=== PATIENT | male | born 1950 | race Caucasian/White ===

== ENCOUNTER → 2018-08-07 07:51 | Outpatient (CLI) | payer MEDICARE, BC, SELFPAY ==
--- NOTE | 2018-08-07 10:47 | PFTCOMP ---
COMPLETE PULMONARY FUNCTION TEST INTERPRETATION Brief HPI: Patient is a 67 year old male, currently under the care of Dr. Frye, who presents to [facility] for complete pulmonary function tests secondary to diagnosis of COPD. Respiratory therapist reports good effort and reproducible results. Interpretation: Forced expiration spirometry shows a severe large airways obstructive ventilatory defect with an FEV1 of 49% predicted. There is a significant bronchodilator response in FEV1 by ATS criteria. Spirograms are of good quality and plateau slowly, indicating slowly emptying areas of the lungs. The respiratory flow volume loop shows decreased expiratory flow rates at all lung volumes consistent with airway obstruction. Lung volumes by body plethysmography show an elevated total lung capacity at 7.67 L, 143% predicted. FRC and RV are elevated out of proportion. Lung volume measurements are consistent with hyperinflation and air-trapping. Diffusion capacity by carbon monoxide is at the lower limit of normal at 59% predicted. The airway resistance is elevated. No previous pulmonary function tests were available for review. Impression: Partially reversible severe large airways obstructive ventilatory defect with a symmetric reduction diffusing capacity, resulting in air trapping with hyperinflation, and consistent with a diagnosis of COPD/asthma overlap syndrome.
== END ==
PROVIDERS: Family Provider Internal Medicine; PCP Internal Medicine; Visit Provider Internal Medicine Critical Care Medicine
DX: J44.9 Chronic obstructive pulmonary disease, unspecified (principal); F17.210 Nicotine dependence, cigarettes, uncomplicated
CPT/HCPCS: 94060; 94726; 94729

== ENCOUNTER → 2018-08-08 10:40 | Outpatient (CLI) | payer MEDICARE, BC, SELFPAY ==
[2018-08-08 11:00] VITALS: PULSE 82; PULSE 83; PULSE 86; PULSE 87; PULSE 89; PULSE 90; PULSE 91; O2SAT 91; O2SAT 92; O2SAT 93; O2SAT 94; O2SAT 95; O2SAT 96
--- NOTE | 2018-08-09 08:10 | WT_ITS ---
PSN 6 Minute Walk Test - 6 Minute Walk Test 6 Minute Walk Test: 6 Minute Walk Test PSN:6-Minute Walk Test Start: 08/08/18 11: 27 Freq: Status: Active Protocol: RESP.6MINW Document 08/08/18 11:00 HG (Rec: 08/08/18 11:30 HG [id number]) 6 Minute Walk Test Date Performed 08/08/18 Time Performed 11:00 Height 5 ft 5 in Weight: 52.617 kg Weight in Pounds 116.[address]: Jose Frye Assistive device used: None Pre-test Oxygen Delivery Method Room Air Pulse Ox (%) 94 Pulse Rate (60-100 beats/min) 82 Dyspnea Shanti Scale (0-10) 1 Exertion Shanti Scale (6-20) 8 1st minute Oxygen Delivery Method Room Air Pulse Ox (%) 96 Pulse Rate (60-100 beats/min) 86 2nd minute Oxygen Delivery Method Room Air Pulse Ox (%) 96 Pulse Rate (60-100 beats/min) 89 3rd minute Oxygen Delivery Method Room Air Pulse Ox (%) 94 Pulse Rate (60-100 beats/min) 87 4th minute Oxygen Delivery Method Room Air Pulse Ox (%) 95 Pulse Rate (60-100 beats/min) 89 5th minute Oxygen Delivery Method Room Air Pulse Ox (%) 93 Pulse Rate (60-100 beats/min) 91 6th minute Oxygen Delivery Method Room Air Pulse Ox (%) 91 Pulse Rate (60-100 beats/min) 90 Post-test Oxygen Delivery Method Room Air Pulse Ox (%) 92 Pulse Rate (60-100 beats/min) 83 Dyspnea Shanti Scale (0-10) 3 Exertion Shanti Scale (6-20) 11 Full Laps Walked 18 Partial Lap, Number of Tiles Walked 0 Total Distance Walked (ft) 1062 - Interpretation Interpretation: The patient was able to ambulate 1062 feet over the course of 6 minutes on room air with no assistive devices or breaks. The patient did experience significant desaturation from a baseline of 96%, to as low as 91%, but no tachycardia was noted. These findings are consistent with a respiratory limitation exercise tolerance. - Recommendations Recommendations: No supplemental oxygen is indicated at this time. However, patient will need to be followed closely given level of desaturation.
== END ==
PROVIDERS: Family Provider Internal Medicine; PCP Internal Medicine; Visit Provider Internal Medicine Critical Care Medicine
DX: J44.9 Chronic obstructive pulmonary disease, unspecified (principal); F17.210 Nicotine dependence, cigarettes, uncomplicated
CPT/HCPCS: 94618

== ENCOUNTER → 2018-09-06 09:50 | Outpatient (CLI) | payer MEDICARE, BC, SELFPAY ==
[2018-09-06 10:42] LABS: Absolute Neutrophil Count 5.3 X10^3/uL (2.0-7.7); Basophil# 0.05 X10^3/uL; Basophil% 0.6 % (0-1); Eosinophil# 0.59 X10^3/uL; Eosinophils% 7.1 % (0-5); Hematocrit 53.6 % (40-54); Lymphocyte % 20.6 % (19-41); Mean Corpuscular Volume 91.2 fL (80-94); Mean Platelet Vol. 9.4 fl (6.2-12.0); Monocyte# 0.58 X10^3/uL; Neutrophil # 5.34 X10^3/uL (2.7-7.7); Neutrophil % 64.6 % (47-70); Platelet Count 189 K/mm3 (150-450); Red Blood Count 5.88 M/mm3 (4.6-6.2); White Blood Count 8.3 K/mm3 (4.4-11.0)
[2018-09-06 10:44] LABS: Hemoglobin 18.2 g/dl (13.0-16.5); POSITIVE COUNT NO; POSITIVE DIFFERENTIAL NO; POSITIVE MORPHOLOGY NO
[2018-09-09 14:06] LABS: Alternaria alternata <0.10 kU/L (Class 0); Bermuda Grass <0.10 kU/L (Class 0); Bluegrass, Kentucky <0.10 kU/L (Class 0); Cat Hair/Dander, Standard <0.10 kU/L (Class 0); D farinae Mite <0.10 kU/L (Class 0); D pteronyssinus <0.10 kU/L (Class 0); Dog Epithelia <0.10 kU/L (Class 0); Elm, American White <0.10 kU/L (Class 0); Oak, White <0.10 kU/L (Class 0); Plantain, English <0.10 kU/L (Class 0); Ragweed, Short/Common <0.10 kU/L (Class 0)
[2018-09-09 20:06] LABS: Aspirgillus flavus Negative (Neg:<1:1); Aspirgillus fumigatus Negative (Neg:<1:1); Aspirgillus niger Negative (Neg:<1:1)
[2018-09-10 07:31] LABS: Mouse Urine <0.10 kU/L (Class 0)
[2018-09-10 07:33] LABS: Immunoglobulin E 102 IU/mL (0-100)
== END ==
PROVIDERS: Family Provider Internal Medicine; PCP Internal Medicine; Referring Provider Nurse Practitioner Acute Care; Visit Provider Nurse Practitioner Acute Care
DX: J44.9 Chronic obstructive pulmonary disease, unspecified (principal); J45.909 Unspecified asthma, uncomplicated
CPT/HCPCS: 36415; 82785; 85025; 86003; 86606

== ENCOUNTER → 2019-03-02 13:03 | Outpatient (CLI) | payer MEDICARE, BC, SELFPAY ==
[2019-02-21 09:24] VITALS: BMI 21.1
--- NOTE | 2019-03-02 13:06 | CT_ITS ---
STUDY: LOW DOSE CT LUNG CANCER SCREENING REASON FOR EXAM: Male, 68 years old. Smoking history, one half pack per day for 30 years RADIATION DOSAGE (If Supplied By Facility): CTDIvol = ( 2.01 ) mGy, DLP = ( 72.23 ) mGycm TECHNIQUE: No contrast was administered. Low dose technique was utilized (average mAS-38 and kVp 120). 1.25 mm axial source images with a slice interval of 1.25-mm were reconstructed in lung windows. 2.5 mm axial source images with a slice interval of 2.5-mm were reconstructed in lung windows. 5.0 mm axial source images with a slice interval of 5.0-mm were reconstructed in soft tissue windows. Nodule measured using lung windows on PACS and/or independent workstation with automated measurement of minimum and maximum diameter. Nodule measurement reported as average diameter rounded to the nearest whole number. Growth is defined as an increase ins size of greater than 1.5 mm. COMPARISON: None. NODULES: No noncalcified pulmonary nodules are localized groundglass opacities. There is a granuloma in the left upper lobe. Emphysema: Moderate centrilobular emphysema throughout the lungs but particularly in the upper lung zones. Endobronchial lesion: No endobronchial lesions. Mild fibrotic bands identified in the bilateral lung bases with mild degree of traction bronchiectasis involving the lung bases more than the upper lung zones. Aorta: There is atherosclerosis of the thoracic aorta. Coronary arteries: Sternal wires and mediastinal surgical clips compatible with prior CABG. Heart: Heart size is normal. Pulmonary artery: Unremarkable for unopacified appearance. Mediastinal nodes: No mediastinal or hilar adenopathy. There are calcified left hilar lymph nodes. Other chest and abdominal findings: The adrenal glands are not focally enlarged. Bladder surgically absent. CT/Low Dose CT Lung Screening IMPRESSION: 1. Lung-RADS category 1 - Continue annual screening with LDCT in 12 months. 2. Moderate centrilobular emphysema with scattered fibrotic changes and mild bronchiectasis. 3. CABG. IMPORTANT NOTES FOR USE: ACR Lung-RADS Version 1.0 Assessment Categories Release Date: March 18, 2014 Category: Coded 0-4 bases on nodule(s) with highest degree of suspicion. Negative screen is defined as categories 1 and 2; a positive screen is defined as categories 3 and 4. Category 3 and 4A nodules that are unchanged on interval CT should be coded as category 2, and individuals returned to screening in 12 months. Category 4X: Category 3 or 4 nodules with additional imaging findings that increase the suspicion of lung cancer, such as spiculation, GGN that doubles in size in 1 year, enlarged lymph notes, etc. Category Modifiers: S (significant finding unrelated to lung cancer) and C (prior history of treated lung cancer) may be added to the 0-4 Lung-RADS Electronically Signed: Azeem Diaz MD at 10:47 EDT , Service support ,
== END ==
PROVIDERS: Family Provider Internal Medicine; PCP Internal Medicine; Referring Provider Internal Medicine Critical Care Medicine; Visit Provider Internal Medicine Critical Care Medicine
DX: Z12.2 Encounter for screening for malignant neoplasm of respiratory organs (principal); F17.210 Nicotine dependence, cigarettes, uncomplicated
CPT/HCPCS: G0297

== ENCOUNTER → 2019-03-05 07:45 | Outpatient (CLI) | payer MEDICARE, BC, SELFPAY ==
[2019-02-21 09:24] VITALS: BMI 21.1
--- NOTE | 2019-03-05 15:41 | PFTCOMP_ITS ---
COMPLETE PULMONARY FUNCTION TEST INTERPRETATION Brief HPI: Patient is a 68 year old male, currently under the care of Dr. Frye, who presents to [facility] for complete pulmonary function tests secondary to diagnosis of COPD. Respiratory therapist reports good effort and reproducible results. Interpretation: Forced expiration spirometry shows a severe large airways obstructive ventilatory defect with an FEV1 of 47% predicted. There is a significant bronchodilator response in FEV1 by strict ATS criteria. Spirograms are of good quality and plateau slowly, indicating slowly emptying areas of the lungs. The respiratory flow volume loop shows decreased expiratory flow rates at all lung volumes consistent with airway obstruction. Lung volumes by body plethysmography show an elevated total lung capacity at 7.15 L, 134% predicted. FRC and RV are elevated out of proportion. Lung volume measurements are consistent with hyperinflation and air-trapping. Diffusion capacity by carbon monoxide is at the lower limit of normal at 61% predicted. The airway resistance is elevated. Compared to previous pulmonary function tests from 08/07/18, there has been no significant change. Impression: Partially reversible severe large airways obstructive ventilatory defect resulting in air trapping with hyperinflation and consistent with COPD/asthma overlap syndrome.
== END ==
PROVIDERS: Family Provider Internal Medicine; PCP Internal Medicine; Referring Provider Internal Medicine Critical Care Medicine; Visit Provider Internal Medicine Critical Care Medicine
DX: F17.210 Nicotine dependence, cigarettes, uncomplicated (principal)
CPT/HCPCS: 94060; 94726; 94729

== ENCOUNTER → 2019-03-08 08:11 | Outpatient (CLI) | payer MEDICARE, BC, SELFPAY ==
[2019-02-21 09:24] VITALS: BMI 21.1
[2019-03-08 09:54] VITALS: PULSE 82; PULSE 83; PULSE 86; PULSE 89; PULSE 90; PULSE 91; PULSE 92; O2SAT 92; O2SAT 93; O2SAT 94; O2SAT 97; O2SAT 98
--- NOTE | 2019-03-08 14:56 | PCM.PSN.6M ---
PSN 6 Minute Walk Test - 6 Minute Walk Test 6 Minute Walk Test: 6 Minute Walk Test PSN:6-Minute Walk Test Start: 03/08/19 09:54 Freq: Status: Active Protocol: RESP.6MINW Document 03/08/19 09:54 [facility] (Rec: 03/08/19 09:59 [facility] [id number]) 6 Minute Walk Test Date Performed 03/08/19 Time Performed 08:30 Height 5 ft 5 in Weight: 57.606 kg Weight in Pounds 127.[address]: Jose Frye Assistive device used: None Pre-test Oxygen Delivery Method Room Air Pulse Ox (%) 97 Pulse Rate (60-100 beats/min) 82 Dyspnea Shanti Scale (0-10) 4 Reported Symptoms Increased Work of Breathing 1st minute Oxygen Delivery Method Room Air Pulse Ox (%) 98 Pulse Rate (60-100 beats/min) 83 Dyspnea Shanti Scale (0-10) 4 Reported Symptoms Increased Work of Breathing 2nd minute Oxygen Delivery Method Room Air Pulse Ox (%) 94 Pulse Rate (60-100 beats/min) 90 Dyspnea Shanti Scale (0-10) 5 Reported Symptoms Increased Work of Breathing 3rd minute Oxygen Delivery Method Room Air Pulse Ox (%) 92 Pulse Rate (60-100 beats/min) 91 Dyspnea Shanti Scale (0-10) 5 Reported Symptoms Increased Work of Breathing 4th minute Oxygen Delivery Method Room Air Pulse Ox (%) 93 Pulse Rate (60-100 beats/min) 89 Dyspnea Shanti Scale (0-10) 5 Reported Symptoms Increased Work of Breathing 5th minute Oxygen Delivery Method Room Air Pulse Ox (%) 94 Pulse Rate (60-100 beats/min) 91 Dyspnea Shanti Scale (0-10) 5 Reported Symptoms Increased Work of Breathing 6th minute Oxygen Delivery Method Room Air Pulse Ox (%) 94 Pulse Rate (60-100 beats/min) 92 Dyspnea Shanti Scale (0-10) 5 Reported Symptoms Increased Work of Breathing Post-test Oxygen Delivery Method Room Air Pulse Ox (%) 98 Pulse Rate (60-100 beats/min) 86 Dyspnea Shanti Scale (0-10) 4 Reported Symptoms Increased Work of Breathing Full Laps Walked 18 Partial Lap, Number of Tiles Walked 41 Total Distance Walked (ft) 1103 - Interpretation Interpretation: The patient was able to ambulate 1103 feet over the course of 6 minutes on room air with no assistive devices or breaks. The patient did experience significant desaturation from a baseline of 97% to as low as 92%, but no significant tachycardia was noted. These findings are consistent with a respiratory limitation exercise tolerance. - Recommendations Recommendations: No supplemental oxygen is indicated at this time. However, patient will need to be followed closely given level of desaturation.
== END ==
PROVIDERS: Family Provider Internal Medicine; PCP Internal Medicine; Referring Provider Internal Medicine Critical Care Medicine; Visit Provider Internal Medicine Critical Care Medicine
DX: J44.9 Chronic obstructive pulmonary disease, unspecified (principal)
CPT/HCPCS: 94618

== ENCOUNTER → 2020-02-21 | Outpatient (CLI) | payer MEDICARE, BC, SELFPAY ==
[2020-01-07 09:47] VITALS: BMI 20.5
--- NOTE | 2020-02-21 15:30 | CT_ITS ---
STUDY: LOW DOSE CT LUNG CANCER SCREENING REASON FOR EXAM: Male, 69 years old. TOBACCO DEPENDENCY/1/2PPD X 30YR. Hx of CABG and heart stent x 6. COPD x 2yr RADIATION DOSAGE (If Supplied By Facility): CTDIvol = ( 1.70 ) mGy, DLP = ( 60.61 ) mGycm TECHNIQUE: No contrast was administered. Low dose technique was utilized (average mAS-38 and kVp 120). 1.25 mm axial source images with a slice interval of 1.25-mm were reconstructed in lung windows. 2.5 mm axial source images with a slice interval of 2.5-mm were reconstructed in lung windows. 5.0 mm axial source images with a slice interval of 5.0-mm were reconstructed in soft tissue windows. Nodule measured using lung windows on PACS and/or independent workstation with automated measurement of minimum and maximum diameter. Nodule measurement reported as average diameter rounded to the nearest whole number. Growth is defined as an increase ins size of greater than 1.5 mm. COMPARISON: Comparison is made with prior study dated March 02, 2019. NODULES: Granuloma in the left upper lobe. Emphysema: Hyperinflation. Stable emphysematous changes throughout both lungs worse in the upper lobes. Increased markings in the lingular segment of the left upper lobe abutting the left major fissure suggestive of a scarring. Mild degree of perihilar bronchiectasis. Endobronchial lesion: No endobronchial lesion is seen. Aorta: Atherosclerotic calcification. Coronary arteries: Coronary artery calcification. Heart: Prior CABG. Pulmonary artery: Mediastinal nodes: Calcified left hilar nodes. Other chest and abdominal findings: Degenerative changes of the thoracic spine. CT/Low Dose CT Lung Screening IMPRESSION: Lung-RADS category 2 - Continue annual screening with LDCT in 12 months. IMPORTANT NOTES FOR USE: ACR Lung-RADS Version 1.0 Assessment Categories Release Date: March 18, 2014 Category: Coded 0-4 bases on nodule(s) with highest degree of suspicion. Negative screen is defined as categories 1 and 2; a positive screen is defined as categories 3 and 4. Category 3 and 4A nodules that are unchanged on interval CT should be coded as category 2, and individuals returned to screening in 12 months. Category 4X: Category 3 or 4 nodules with additional imaging findings that increase the suspicion of lung cancer, such as spiculation, GGN that doubles in size in 1 year, enlarged lymph notes, etc. Category Modifiers: S (significant finding unrelated to lung cancer) and C (prior history of treated lung cancer) may be added to the 0-4 Lung-RADS Electronically Signed: Gerard Corona, at 15:52 EDT , Service support ,
== END | disposition home or self-care (01) ==
LOC: CT 15:25
PROVIDERS: PCP Internal Medicine; Referring Provider Internal Medicine Critical Care Medicine; Visit Provider Internal Medicine Critical Care Medicine
DX: F17.210 Nicotine dependence, cigarettes, uncomplicated (principal)
CPT/HCPCS: G0297

== ENCOUNTER → 2021-03-04 13:41 | Outpatient (CLI) | payer MEDICARE, BC, SELFPAY ==
[2020-06-25 12:38] VITALS: BMI 19.4
--- NOTE | 2021-03-04 13:44 | CT_ITS ---
STUDY: LOW DOSE CT LUNG CANCER SCREENING REASON FOR EXAM: Male, 70 years old. Long history of smoking. Screening for lung cancer. RADIATION DOSAGE (If Supplied By Facility): CTDIvol = ( 1.50 ) mGy, DLP = ( 53.94 ) mGycm TECHNIQUE: No contrast was administered. Low dose technique was utilized (average mAS-38 and kVp 120). 1.25 mm axial source images with a slice interval of 1.25-mm were reconstructed in lung windows. 2.5 mm axial source images with a slice interval of 2.5-mm were reconstructed in lung windows. 5.0 mm axial source images with a slice interval of 5.0-mm were reconstructed in soft tissue windows. Nodule measured using lung windows on PACS and/or independent workstation with automated measurement of minimum and maximum diameter. Nodule measurement reported as average diameter rounded to the nearest whole number. Growth is defined as an increase ins size of greater than 1.5 mm. COMPARISON: None. NODULES: There is hyperinflation of the lungs consistent with chronic obstructive lung disease (COPD). There is a nodule in the anterior segment of the right lung upper lobe measures 5 mm is stable since 03/02/2019 most likely represent a granuloma, axial images #84. Calcified granuloma is also noted in the left lung upper lobe. There are no suspicious lung nodules There are no endobronchial lesions. There is no demonstrated pleural abnormality. Normal heart and pericardium. Normal mediastinum. Normal hilar regions. Normal unenhanced pulmonary arteries. Normal aorta arch and descending thoracic aorta. Normal osseous structures. There is no demonstrated abnormality of the visualized upper abdomen. CT/Low Dose CT Lung Screening IMPRESSION: Lung-RADS category 2. Benign findings. COPD. Stable right lung upper lobe nodule. Recommendation: Routine screening CT scan in one year. IMPORTANT NOTES FOR USE: ACR Lung-RADS Version 1.0 Assessment Categories Release Date: March 18, 2014 Category: Coded 0-4 bases on nodule(s) with highest degree of suspicion. Negative screen is defined as categories 1 and 2; a positive screen is defined as categories 3 and 4. Category 3 and 4A nodules that are unchanged on interval CT should be coded as category 2, and individuals returned to screening in 12 months. Category 4X: Category 3 or 4 nodules with additional imaging findings that increase the suspicion of lung cancer, such as spiculation, GGN that doubles in size in 1 year, enlarged lymph notes, etc. Category Modifiers: S (significant finding unrelated to lung cancer) and C (prior history of treated lung cancer) may be added to the 0-4 Lung-RADS Electronically Signed: Lisa Harrison MD at 23:52 EDT Tel , Service support ,
== END ==
PROVIDERS: PCP Internal Medicine; Referring Provider Internal Medicine Critical Care Medicine; Visit Provider Internal Medicine Critical Care Medicine
DX: F17.210 Nicotine dependence, cigarettes, uncomplicated (principal); Z12.2 Encounter for screening for malignant neoplasm of respiratory organs
CPT/HCPCS: 71271

== ENCOUNTER 2022-03-05 13:12 | Outpatient (CLI) | payer MEDICARE, BC, SELFPAY ==
--- NOTE | 2022-03-05 13:14 | CT_ITS ---
STUDY: LOW DOSE CT LUNG CANCER SCREENING REASON FOR EXAM: Male, 71 years old. Tobacco Dependency. Patient smoked half a pack per day for 30 years. RADIATION DOSAGE (If Supplied By Facility): CTDIvol = ( 2.01 ) mGy, DLP = ( 74.49 ) mGycm TECHNIQUE: No contrast was administered. Low dose technique was utilized (average mAS-38 and kVp 120). 1.25 mm axial source images with a slice interval of 1.25-mm were reconstructed in lung windows. 2.5 mm axial source images with a slice interval of 2.5-mm were reconstructed in lung windows. 5.0 mm axial source images with a slice interval of 5.0-mm were reconstructed in soft tissue windows. COMPARISON: Comparison is made with prior study dated 03/04/2021. NODULES: There is a new 2.5 mm tiny spiculated nodule in the posterior medial aspect of the right upper lobe as seen on axial image #74. Stable 4 mm calcified granuloma in the lateral aspect of the right upper lobe as seen on axial image #91. Emphysema: Hyperinflation. Emphysematous changes worse in the upper lobes. Mild linear scarring in the anterior medial aspect of the right middle lobe and lingular segment of the left upper lobe. This is unchanged. Endobronchial lesion: None Aorta: Atherosclerotic plaque formation of the aortic arch. CORONARY ARTERIES: Coronary artery calcification Heart: Unremarkable Pulmonary artery: Unremarkable Mediastinal nodes: Remarkable Other chest and abdominal findings: CT/Low Dose CT Lung Screening IMPRESSION: Lung-RADS category 3 - Continue screening with LDCT in 6 months. IMPORTANT NOTES FOR USE: ACR Lung-RADS Version 1.1 Assessment Categories Release Date: 2018 Category: Coded 0-4 bases on nodule(s) with highest degree of suspicion. Negative screen is defined as categories 1 and 2; a positive screen is defined as categories 3 and 4. Category 3 and 4A nodules that are unchanged on interval CT should be coded as category 2, and individuals returned to screening in 12 months. Category 4X: Category 3 or 4 nodules with additional imaging findings that increase the suspicion of lung cancer, such as spiculation, GGN that doubles in size in 1 year, enlarged lymph notes, etc. Category Modifiers: S (significant finding unrelated to lung cancer) Electronically Signed: Gerard Corona MD at 13:41 EDT ,
== END 2022-03-05 23:59 | disposition home or self-care (01) ==
LOC: CT 13:13
PROVIDERS: PCP Internal Medicine; Referring Provider Internal Medicine Critical Care Medicine; Visit Provider Internal Medicine Critical Care Medicine
DX: Z87.891 Personal history of nicotine dependence (principal)
CPT/HCPCS: 71271

== ENCOUNTER → 2023-03-07 | Outpatient (CLI) | payer MEDICARE, BC, SELFPAY ==
--- NOTE | 2023-03-07 13:50 | CT_ITS ---
STUDY: LOW DOSE CT LUNG CANCER SCREENING REASON FOR EXAM: Male, 72 years old. Tobacco Dependency RADIATION DOSAGE (If Supplied By Facility): CTDIvol = ( 2.01 ) mGy, DLP = ( 71.73 ) mGycm TECHNIQUE: No contrast was administered. Low dose technique was utilized (average mAS-38 and kVp 120). 1.25 mm axial source images with a slice interval of 1.25-mm were reconstructed in lung windows. 1.25 mm coronal sagittal reformats were reconstructed in lung windows. COMPARISON: March 05, 2022, March 04, 2021, February 21, 2020 NODULES: Nodule #: 1 Density: Solid Lung location: Posterior right upper lobe lobe: 1.8 cm cm from pleura Location in series: Series Number: 2 Image: 64 Size - D1 x D2 mm: 4 x 3 mm: 3.5 average diameter Margin: Spiculated Shape: Round Calcification: None Fat: None Temporal comparison: Unchanged from March 05, 2022 when measures similarly Nodule #: 2 Density: Solid Lung location: Lateral right upper lobe lobe: 1.1 cm cm from pleura Location in series: Series Number: 2 Image: 88 Size - D1 x D2 mm: 3 x 3 mm: 3 average diameter Margin: Circumscribed Shape: Available Calcification: None Fat: None Temporal comparison: Unchanged from February 21, 2020 when measures similarly Chronic anterior left lower lobe 2 mm calcified granuloma, unchanged from February 21, 2020. Additional larger densely calcified left upper lobe stable calcified granuloma. Total lung nodules (excluding granulomas): 2 Parenchyma: Lungs hyperexpanded with diffuse centrilobular emphysematous change. No airspace consolidation, effusion, or pneumothorax. Mild linear subsegmental atelectasis or scarring in the lung bases and posterior left upper lobe. Endobronchial lesion: Mild bilateral peribronchial thickening with endobronchial mucus or debris in the subsegmental posterior right lower lobe Aorta: Aortic atherosclerosis without ectasia. CORONARY ARTERIES: Coronary artery bypass changes with severe multi-[place] vessel coronary atherosclerosis. Heart: No cardiomegaly. Pulmonary artery: No main pulmonary arterial enlargement. Mediastinal nodes: Pretracheal mediastinal lymph nodes up to 1.6 x 1.0 cm without significant change from February 21, 2020. Other scattered subcentimeter mediastinal lymph nodes are present. No bulky hilar adenopathy. Calcified small left hilar lymph node noted. Other chest and abdominal findings: Calcified sequela of prior granulomatous disease. Renal vascular calcifications with possible nonobstructive 4 mm right renal stone unchanged from March 04, 2021. Sternotomy wires. Mild chronic anterior vertebral height loss at T4. CT/Low Dose CT Lung Screening IMPRESSION: One-year stability of right upper lobe spiculated 3.5 mm nodule with additional nodules and calcified granulomas unchanged from June 22, 2020. No new or enlarging nodules. Mild peribronchial thickening with endobronchial mucus or debris in the posterior right lower lobe. No evidence of consolidative pneumonia. Diffuse emphysematous change. Coronary bypass changes. Lung-RADS category 2 - Continue annual screening with LDCT in 12 months. IMPORTANT NOTES FOR USE: ACR Lung-RADS Version 1.1 Assessment Categories Release Date: 2018 Category: Coded 0-4 bases on nodule(s) with highest degree of suspicion. Negative screen is defined as categories 1 and 2; a positive screen is defined as categories 3 and 4. Category 3 and 4A nodules that are unchanged on interval CT should be coded as category 2, and individuals returned to screening in 12 months. Category 4X: Category 3 or 4 nodules with additional imaging findings that increase the suspicion of lung cancer, such as spiculation, GGN that doubles in size in 1 year, enlarged lymph notes, etc. Category Modifiers: S (significant finding unrelated to lung cancer) Electronically Signed: Pepito Wade MD at 5:46 EDT ,
== END | disposition home or self-care (01) ==
LOC: CT 13:42
PROVIDERS: PCP Internal Medicine; Referring Provider Internal Medicine Critical Care Medicine; Visit Provider Internal Medicine Critical Care Medicine
DX: F17.210 Nicotine dependence, cigarettes, uncomplicated (principal)
CPT/HCPCS: 71271

== ENCOUNTER → 2024-05-18 | Outpatient (CLI) | payer MEDICARE, BC, SELFPAY ==
--- NOTE | 2024-05-18 15:47 | CT_ITS ---
STUDY: LOW DOSE CT LUNG CANCER SCREENING REASON FOR EXAM: Male, 73 years old. Current smoker, long-term smoking history RADIATION DOSAGE (If Supplied By Facility): CTDIvol = ( 2.01 ) mGy, DLP = ( 75.25 ) mGycm TECHNIQUE: No contrast was administered. Low dose technique was utilized (average mAS-38 and kVp 120). 1.25 mm axial source images with a slice interval of 1.25-mm were reconstructed in lung windows. 2.5 mm axial source images with a slice interval of 2.5-mm were reconstructed in lung windows. 5.0 mm axial source images with a slice interval of 5.0-mm were reconstructed in soft tissue windows. COMPARISON: 03/07/2023 FINDINGS: Lung windows show underlying emphysema with chronic interstitial changes. A previously noted 4 x 3 mm noncalcified nodule in the posterior right lower lobe has decreased in size since the previous study now measuring 3 x 2 mm. There is a stable 3 x 3 mm noncalcified nodular density in the right lower lobe on axial image 97. No new suspicious noncalcified mass or nodule. Chronic interstitial changes noted in both lung gama with nonspecific pleural thickening. However, there are now air space opacifications in both lower lung gama right greater than left suggestive of an inflammatory process, bronchiectatic changes are also now noted in the right lung base. Follow-up is recommended to ensure resolution. Limited soft tissues show normal-appearing thyroid gland. There has been a remote CABG. There are stable mediastinal lymph nodes, largest is in the AP window measuring 9 mm in short axis dimension. No pleural or pericardial effusions. Limited cuts through the upper abdomen do not show a suspicious abnormality. Bony structures show degenerative change. Again there are no new suspicious noncalcified nodules identified. There is new airspace opacification of both lower lung gama compared to the previous study. However, neoplasm cannot be excluded and short-term follow-up is recommended or a PET/CT study could be performed to determine if suspicious metabolic activity is present. CT/Low Dose CT Lung Screening IMPRESSION: Lung-RADS category 4A - Screening at 3 months with LDCT or evaluation with PET/CT may be used. IMPORTANT NOTES FOR USE: ACR Lung-RADS Version 1.1 Assessment Categories Release Date: 2018 Category: Coded 0-4 bases on nodule(s) with highest degree of suspicion. Negative screen is defined as categories 1 and 2; a positive screen is defined as categories 3 and 4. Category 3 and 4A nodules that are unchanged on interval CT should be coded as category 2, and individuals returned to screening in 12 months. Category 4X: Category 3 or 4 nodules with additional imaging findings that increase the suspicion of lung cancer, such as spiculation, GGN that doubles in size in 1 year, enlarged lymph notes, etc. Category Modifiers: S (significant finding unrelated to lung cancer) Electronically Signed: Reinaldo Franks MD at 18:44 EDT ,
== END | disposition home or self-care (01) ==
LOC: CT 15:44
PROVIDERS: PCP Internal Medicine; Referring Provider Nurse Practitioner Acute Care; Visit Provider Nurse Practitioner Acute Care
DX: F17.210 Nicotine dependence, cigarettes, uncomplicated (principal)
CPT/HCPCS: 71271

== ENCOUNTER → 2024-07-30 | Outpatient (CLI) | payer MEDICARE, BC, SELFPAY ==
--- NOTE | 2024-07-30 14:08 | CT_ITS ---
STUDY: CT CHEST WITHOUT CONTRAST REASON FOR EXAM: Male, 73 years old. lung nodules in high risk patient RADIATION DOSAGE (If Supplied By Facility): CTDIvol = ( 6.12 ) mGy, DLP = ( 233.88 ) mGycm TECHNIQUE: Transaxial imaging was performed without the administration of intravenous contrast material. Multiplanar coronal and sagittal images were reformatted. Individualized dose optimization techniques were used for this CT. COMPARISON: Comparison is made with prior study dated May 18, 2024. FINDINGS: CHEST Hyperinflation. Emphysematous changes more pronounced in the upper lobes. Stable volume loss and consolidation in the right lower lobe. Focal infiltrate in the posterior aspect of the lingular segment of the left upper lobe abutting the left major fissure. Stable mild airspace disease in the left lower lobe. There is no demonstrated pleural abnormality. Sternal cerclage wires and vascular clips are present from a prior sternotomy and coronary artery bypass graft procedure (CABG). There are calcifications of the coronary arteries. There are small lymph nodes within the mediastinum, which are normal in size and morphology most compatible with reactive lymph hyperplasia. Normal hilar regions. Normal unenhanced pulmonary arteries. There is atherosclerotic calcification of the aortic arch with tortuosity and elongation of the aortic arch and descending thoracic aorta. There are degenerative changes of the thoracic spine. There is no demonstrated abnormality of the visualized upper abdomen. CT/Chest without Contrast IMPRESSION: Essentially stable examination. Correlation with a PET scan recommended. Electronically Signed: Gerard Corona MD at 8:49 EDT ,
== END | disposition home or self-care (01) ==
LOC: CT 14:06
PROVIDERS: PCP Internal Medicine; Referring Provider Nurse Practitioner Acute Care; Visit Provider Nurse Practitioner Acute Care
DX: R91.8 Other nonspecific abnormal finding of lung field (principal)
CPT/HCPCS: 71250

== ENCOUNTER → 2024-08-21 | Outpatient (CLI) | payer MEDICARE, BC, SELFPAY ==
--- NOTE | 2024-08-21 12:15 | PET_ITS ---
EXAMINATION: FDG PET-CT INDICATIONS: A 73-year-old male with a history of abnormal findings in the lung field-pulmonary nodularity. COMPARISON EXAMINATION: None available. INDEX LESION SIZE SUV INTERPRETATION Proximal esophagus nodular 11.3 mm 3.7 Most consistent with physiologic tracer uptake, may necessitate direct visualization. Left mid anterior lung field, nodular 1.6 max Quantitative criteria for viable neoplasm are not fulfilled, sequential radiologic investigation recommended. Right lower lung field, diffuse non-nodular 2.0 max Quantitative criteria for viable neoplasm are not fulfilled. TECHNIQUE: Following the intravenous administration of 15.67 mCi of F-18 deoxyglucose via the right antecubital fossa, multiplanar image acquisitions of the head, neck, chest, abdomen and pelvis to level of mid-thigh, lower extremities obtained at one hour post radiopharmaceutical administration contemporaneously interpreted with the current CT of the head, neck, chest, abdomen and pelvis to level of mid-thigh, lower extremities dated 08/21/24 via coregistration reveal: SERUM GLUCOSE LEVEL: 123 mg/dl. HEIGHT: 65 inches. WEIGHT: 103 lbs. FINDINGS: Head/Neck: There is no evidence of abnormal increased glucose metabolism in the pharyngeal mucosal space, parapharyngeal space, bilateral-lateral and anterior neck, hypopharynx and distribution of the laryngeal structures. The visualized portion of the cerebral cortical-subcortical structures demonstrate symmetric and preserved glucose metabolism. CHEST: Facilitated uptake is noted in the right lower posterior lung zone, right lower diffuse non-nodular in presentation. The calculated maximum standard uptake value is 2.0. Facilitated FDG concentration is noted in the proximal esophagus with a calculated maximum standard uptake value of 3.7. The maximum axial diameter of the metabolic abnormality is 11.3 mm. Facilitated uptake is noted in the left mid anterior lung field generating a calculated maximum standard uptake value of 1.6. Prominent radiopharmaceutical concentration is identified in the left ventricular myocardium commensurate with the [place]. Pertinent chest CT findings are as follows. There is atherosclerotic calcification defined in the thoracic aorta without evidence of dilatation-aneurysm formation. Coronary arterial calcification is observed. There is evidence of prior median sternotomy. Additional parenchymal changes noted in the bilateral hemithorax demonstrates no evidence of increased FDG uptake. Emphysematous changes appear evident in the bilateral upper lung zones. There are no additional parenchymal densities-nodules defined in the right and left hemithorax with quantitatively significant increased FDG uptake. Abdomen/Pelvis: Normal physiologic distribution of the radiopharmaceutical is apparent in the hepatic (2.0) and splenic parenchyma, both renal units, bladder and visualized intestinal tract. Diffuse radiopharmaceutical concentration is noted in all four quadrants of the abdomen and pelvis. The abdomen and pelvis CT findings are as follows. There is atherosclerotic calcification defined in the abdominal aorta without evidence of dilatation-aneurysm formation. Abdominal and pelvic arterial calcification is observed. The gallbladder is surgically absent. Surgical clip placement is noted in the right lower abdominal retroperitoneum and mesentery, upper pelvis. Calcification is defined within the prostate gland. Skeletal: Degenerative changes are noted in the cervical, thoracic and lumbar spine. PET/PET/CT Tumor Base -Thigh Init IMPRESSION: 1. Facilitated uptake noted in the proximal esophagus is most consistent with physiologic tracer uptake. If intraluminal soft tissue mass formation is a diagnostic consideration, correlation with direct visualization is recommended. 2. The nodular focus of enhanced glucose metabolism noted at the left mid anterior lung field and diffuse non-nodular increase in uptake noted at the right lower posterior lung do not fulfill quantitative criteria for viable neoplasm. 3. Metabolic and/or anatomic stability may be ensured in the bilateral hemithorax pulmonary parenchymal abnormalities with repeat FDG PET study and/or CT of the thorax in three-six months. (Xiu, Journal of Nuclear Medicine 45:88, P2004 [facility], Seminars in Thoracic and Cardiovascular Surgery 14:292, 2002) Electronic Signature Nikolai Agustin D.O. Accurate Quantification of SUVs for this report are calculated using the exclusive [employer], ([place]. Patent No. [id number] [phone] patent [id number] ). Standardization and correction of the FDG SUV metric exclusively available with [employer] intellectual property, allow for vendor non-specific objective quantitative sequential FDG PET-CT comparison and otherwise unobtainable optimization of the sensitivity and specificity of the examination. [email or web address] Electronically Signed: Nikolai Agustin DO at 7:33 EDT ,
== END | disposition home or self-care (01) ==
PROVIDERS: PCP Internal Medicine; Referring Provider Nurse Practitioner Acute Care; Visit Provider Nurse Practitioner Acute Care
DX: R91.8 Other nonspecific abnormal finding of lung field (principal)
CPT/HCPCS: 78815; A9552

== ENCOUNTER → 2024-12-24 | Outpatient (CLI) | payer MEDICARE, BC, SELFPAY ==
--- NOTE | 2024-12-24 15:04 | CT_ITS ---
PROCEDURE: CHEST WITHOUT CONTRAST REASON FOR EXAM: Multiple lung nodules. Smoking history. TECHNIQUE: Contiguous axial scans of 3.75 mm slice thicknesses. Sagittal and coronal reconstruction images were obtained. One or more dose reduction techniques were used (e.g., automated exposure control, adjustment of mA and/or kv according to patient size, use of iterative reconstruction technique). COMPARISON: CT chest dated 07/30/2024. FINDINGS: CHEST: Lines and tubes: None. Mediastinum: No evidence of mediastinal hemorrhage. A few prominent precarinal lymph nodes, largest measuring 1.9 cm in long axis, axial image 54. Heart: Normal heart size. No pericardial effusion. Extensive coronary artery calcifications. Thoracic Aorta: Atherosclerotic calcifications. No aneurysm. Lungs and Airways: Airspace consolidation in the right lower lobe with air bronchograms. Severe centrilobular emphysematous changes. Pleura: Moderate pleural effusion at the right lung base. Bones: Multilevel spondylosis. Median sternotomy wires. Anterior wedging of the T4 vertebra, loss of height and a range of 50%. Upper abdomen: Calcified spleen granulomas. Small left kidney. Bilateral renovascular calcifications. Splenic artery calcifications. Bilateral adrenal gland thickening. CT/Chest without Contrast IMPRESSION: 1. Severe centrilobular emphysematous changes. 2. Right lower lobe consolidation most likely pneumonia. 3. Moderate right pleural effusion. 4. Stable T4 vertebral body compression fracture. 5. Other nonacute findings detailed above. Reading Location: [facility]
== END | disposition home or self-care (01) ==
LOC: CT 15:01
PROVIDERS: PCP Internal Medicine; Referring Provider Nurse Practitioner Acute Care; Visit Provider Nurse Practitioner Acute Care
DX: R91.8 Other nonspecific abnormal finding of lung field (principal)
CPT/HCPCS: 71250

== ENCOUNTER → 2025-02-15 | Outpatient (CLI) | payer MEDICARE, BC, SELFPAY ==
--- NOTE | 2025-02-15 11:50 | CT_ITS ---
PROCEDURE: CHEST WITHOUT CONTRAST 02/15/2025 REASON FOR EXAM: PNEUMONIA COPD. TECHNIQUE: Chest CT without contrast. Coronal and Sagittal reconstruction series were provided. One or more dose reduction techniques were used (e.g., Automated exposure control, adjustment of the mA and/or kV according to patient size, use of iterative reconstruction technique RADIATION DOSE SUMMARY: CTDlvol: 7.12 mGy DLP: 293.6 mGycm COMPARISON: Comparison is made with prior study dated December 24, 2024. FINDINGS: Hardware: A bipolar pacemaker is seen. Lymph nodes: Small benign-appearing mediastinal lymph nodes. The largest lymph node is in the precarinal level measuring 1.3 cm. Calcified left hilar lymph nodes. Heart and Vasculature: The heart is not enlarged. Atherosclerotic calcifications of the thoracic aorta. Thoracic aorta and pulmonary arteries have normal contours; noncontrast technique limits evaluation. Coronary Artery Calcifications: Present Lungs and Airways: Increase in the right pleural effusion with the right basilar infiltration. Advanced emphysematous changes. There has been no change. Pleura: Increasing right pleural effusion. Upper Abdomen: Status post cholecystectomy. Multiple splenic granulomas. Nonobstructive bilateral intrarenal calculi. Bones: Degenerative changes of the thoracic spine. CT/Chest without Contrast IMPRESSION: Progression in the right pleural effusion with right basilar infiltration super imposed on emphysematous changes. Reading Location: [place] [id number]
== END | disposition home or self-care (01) ==
LOC: CT 11:44
PROVIDERS: PCP Internal Medicine; Referring Provider Nurse Practitioner Acute Care; Visit Provider Nurse Practitioner Acute Care
DX: J18.9 Pneumonia, unspecified organism (principal)
CPT/HCPCS: 71250